=== PATIENT | female | born 1955 | race African-American/Black ===

== ENCOUNTER 2025-04-01 02:51 | Emergency (ER) | payer SELFPAY ==
[2025-04-01] MEDS ORDERED: Lorazepam 2 MG/ML VIAL ONE (03:29)
[2025-04-01] MEDS ORDERED: Sodium Chloride 0.9% 1,000 ML ONE (03:29)
[2025-04-01] MEDS ORDERED: Ondansetron PF 4 MG/2 ML Vial ONE (03:40)
[2025-04-01 04:10] LABS: #Lymphocytes 0.8 thou/uL (1.20-3.40); #Monocytes 0.2 thou/uL (0.11-0.59); #Neutrophils 7.5 thou/uL (1.40-6.50); %Basophils 0.4 % (0.0-1.0); %Lymphocytes 9.5 % (21.0-51.0); %Monocytes 2.6 % (0.0-10.0); %Neutrophils 87.4 % (42.0-75.0); Hematocrit 37.1 % (36.0-47.0); Hemoglobin 12.6 g/dL (12.0-16.0); Mean Corpuscular Hemoglobin 29.9 pg (27.0-31.0); Mean Corpuscular Volume 87.7 fl (78.0-98.0); Mean Platelet Volume 6.1 fL (7.4-10.4); Platelet Count 280 10x3/uL (130-400); RBC Distribution Width 12.2 % (11.5-14.5); Red Blood Cell (RBC) Count 4.23 mill/uL (4.20-5.40); White Blood Cell (WBC) Count 8.5 10x3/uL (4.8-10.8)
[2025-04-01 04:28] LABS: ALT (SGPT) 13 U/L (Less than 34); AST (SGOT) 23 U/L (11-34); Albumin 4.3 g/dL (3.1-4.5); Alkaline Phosphatase 67 U/L (40-110); Anion Gap 21 mmol/L (10-20); BUN (Urea Nitrogen) 8 mg/dL (9.8-20.1); Bilirubin, Total 0.3 mg/dL (0.3-1.2); Calc. Creatinine Clearance 0 mL/min (70-130); Calcium 9.7 mg/dL (7.8-10.44); Carbon Dioxide 20 mmol/L (23-31); Chloride 101 mmol/L (98-107); Estimated GFR 80; Globulin 3.5 g/dL (2.4-3.5); Glucose 241 mg/dL (80-115); Lipase 77 U/L (8-78); Potassium 3.5 mmol/L (3.5-5.1); Protein, Total 7.8 g/dL (5.8-8.1); Sodium 138 mmol/L (136-145)
== END 2025-04-01 05:10 | disposition home or self-care (01) ==
LOC: NAV ERS 02:51
DX: S91.301A Unspecified open wound, right foot, initial encounter (principal); T40.2X5A Adverse effect of other opioids, initial encounter; I10 Essential (primary) hypertension; E78.5 Hyperlipidemia, unspecified; G62.9 Polyneuropathy, unspecified; X58.XXXA Exposure to other specified factors, initial encounter; Z79.899 Other long term (current) drug therapy
CPT/HCPCS: 36415; 71045; 80053; 83690; 85025; 96361; 96374; 96375; J2060; J2405; J7030